=== PATIENT | female | born 1980 | race Caucasian/White ===

== ENCOUNTER 2018-05-26 17:58 | Emergency (ER) | payer SELFPAY ==
[2018-05-26 20:07] LABS: #Basophils 0.1 thou/uL (0.0-0.2); #Eosinphils 0.1 thou/uL (0.0-0.7); #Lymphocytes 1.8 thou/uL (1.20-3.40); #Monocytes 0.7 thou/uL (0.11-0.59); #Neutrophils 8.2 thou/uL (1.40-6.50); %Basophils 0.7 % (0.0-1.0); %Eosinophils 1.1 % (0.0-10.0); %Lymphocytes 16.2 % (21.0-51.0); %Monocytes 6.8 % (0.0-10.0); %Neutrophils 75.2 % (42.0-75.0); Mean Corpuscular Hemoglobin 32.6 pg (27.0-31.0); Mean Corpuscular Volume 98.7 fL (78.0-98.0); Platelet Count 274 thou/uL (130-400); RBC Distribution Width 12.1 % (11.5-14.5); White Blood Cell (WBC) Count 10.8 thou/uL (4.8-10.8)
[2018-05-26 20:30] LABS: ALT (SGPT) 14 U/L (8-55); AST (SGOT) 19 U/L (5-34); Albumin 4.6 g/dL (3.5-5.0); Alkaline Phosphatase 83 U/L (40-150); Anion Gap 17 mmol/L (10-20); BUN (Urea Nitrogen) 13 mg/dL (7.0-18.7); Bilirubin, Total 0.5 mg/dL (0.2-1.2); CK (CPK) 89 U/L (29-168); Calc. Creatinine Clearance 0 mL/min (70-130); Calcium 9.6 mg/dL (7.8-10.44); Carbon Dioxide 25 mmol/L (22-29); Chloride 101 mmol/L (98-107); Estimated GFR-MDRD 87; Globulin 3.1 g/dL (2.4-3.5); Glucose 103 mg/dL (70-105); Lipase 9 U/L (8-78); Potassium 3.7 mmol/L (3.5-5.1); Protein, Total 7.7 g/dL (6.0-8.3); Sodium 139 mmol/L (136-145)
[2018-05-26 20:33] LABS: CKMB 0.9 ng/mL (0-6.6); Troponin I Less than 0.010 ng/mL (< 0.028)
[2018-05-26] MEDS ORDERED: Ondansetron HCl/PF 4 MG/2 ML Vial ONE (20:47)
--- NOTE | 2018-05-26 21:00 | RAD ---
AP VIEW CHEST: 05/26/18 HISTORY: Chest pain. AP view chest is obtained on 05/26/18. The lungs are well aerated. No evidence of active intrathoracic disease seen. No evidence of effusion s, pneumonia, or pneumothorax seen. IMPRESSION: Unremarkable AP view chest. POS: [id number]
[2018-05-26] MEDS ORDERED: Mag-Al 1200 mg/1200 mg/30 ML UDCUP ONE (21:56)
[2018-05-26] MEDS ORDERED: Pantoprazole 40 MG VIAL ONE (21:56)
[2018-05-26] MEDS ORDERED: Lidocaine Viscous Sol 2% 15 ml UD Cup ONE (21:56)
[2018-05-26] MEDS ORDERED: diphenhydrAMINE 50 MG/ML VIAL ONE (22:06)
[2018-05-26] MEDS ORDERED: Metoclopramide HCl 10 MG/2 ML VIAL ONE (22:07)
[2018-05-26 23:52] LABS: Bilirubin Negative (Negative); Blood, Urine Negative (Negative); Clarity CLOUDY (Clear); Glucose, Urine (Dipstick) Negative (Negative); Leukocyte Moderate (Negative); Nitrite Negative (Negative); Protein, Urine (Dipstick) Negative (Neg-Trace); Specific Gravity, Urine 1.023 (1.002-1.036); Urobilinogen 0.2 mg/dL (0.2-1.0)
[2018-05-26 23:53] LABS: Bacteria/HPF None Seen HPF (None Seen); Hyaline Casts/LPF 4-6 HYALINE CAST LPF (0-3 Hyaline); Pathc Cast-AUWi Flag 1.01 (0-2.49); Pregnancy Test - Urine (BHCG) Negative (Negative); Pregu Control Background? CLEAR/WHITE (CLR/WHITE); Pregu Control Bar Appear? YES (CONTROL BAR); Specific Gravity 1.023 (1.002-1.036)
[2018-05-26 23:58] LABS: RBC/HPF 0-3 HPF (0-3)
== END 2018-05-27 00:14 | disposition home or self-care (01) ==
LOC: ERS 17:58
DX: K29.70 Gastritis, unspecified, without bleeding (principal); N39.0 Urinary tract infection, site not specified
CPT/HCPCS: 36415; 71045; 80053; 81003; 81015; 81025; 82550; 82553; 83690; 83880; 84484; 85025; 87086; 93005; 96365; 96366; 96375; C9113; J1200; J2405; J2765